=== PATIENT | female | born 1975 | race Caucasian/White ===

== ENCOUNTER 2016-10-08 16:17 | Emergency (ER) | payer MEDICAID ==
[2016-10-08 16:26] VITALS: BP 141/72
[2016-10-08] MEDS ORDERED: Ketorolac 60 MG/2 ML SDV IM ONE (16:44)
[2016-10-08] MEDS ORDERED: Metoclopramide 10 MG/2 ML SDV IM ONE (16:44)
--- NOTE | 2016-10-08 16:50 | EDM.PDOC ---
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, had THR 1989 and then 10 additional surgeries on that hip, last one 2013 developed DJD in her L knee with bone chips, has reached her limit on steroid injections, is d/t to have L TKR by Dr Stewart out of [place] it had not been scheduled yet pt is from [place] and is staying one more day with a friend in [place], driving thru town here when they stopped at ED pt fell yesterday, L knee gave out, she has aggravation of her usual L knee pain not control with Percocet 2 tabs today (usually takes 1 tab QID) as well as tramadol also has a L sided migraine STOVER, last took Maxalt 2w ago, does not have any Maxalt with her no f/c/d - Related Data Allergies/ADRs: Allergies Allergy/AdvReac Type Severity Reaction Status Date / Time azithromycin Allergy Swelling Verified 10/08/16 16:58 fexofenadine [From [facility]lene] Allergy Hives Verified 10/08/16 16:58 latex Allergy Hives Verified 10/08/16 16:58 Home Meds: Home Meds Cetirizine HCl 10 mg PO DAILY 10/08/16 [History] Furosemide [Furosemide] 20 mg PO DAILY 10/08/16 [History] Hydrocodone/Acetaminophen [Hydrocodon-Acetaminoph 7.5-325] 1 tab PO TID PRN [History] Naproxen [Take Home: Naproxen 500 MG, 4 Tab Pack] 500 mg PO BID PRN 10/08/16 [ History] Prazosin [Minpress] 2 mg PO BEDTIME 10/08/16 [History] Pregabalin [Lyrica] 150 mg PO TID 10/08/16 [History] Tolterodine [Detrol LA 24 Hr] 4 mg PO DAILY 10/08/16 [History] Venlafaxine [Effexor XR] 150 mg PO TID 10/08/16 [History] ED ROS GENERAL - Review of Systems Review Of Systems: See Below Constitutional: Reports: no symptoms HEENT: Reports: No symptoms Respiratory: Reports: No Symptoms Cardiovascular: Reports: No symptoms Endocrine: Reports: no symptoms GI/Abdominal: Reports: No symptoms : Reports: no symptoms Musculoskeletal: Reports: joint pain Skin: Reports: no symptoms Neurological: Reports: Headache Psychiatric: Reports: No symptoms Hematologic/Lymphatic: Reports: no symptoms Immunologic: Reports: no symptoms - Physical Exam Exam: See Below Exam Limited By: No limitations General Appearance: alert, WD/WN, mild distress, other (wearing sunglasses, cooperative, nontoxic) Eye Exam: bilateral eye: normal inspection, PERRL Ears: normal external exam, hearing grossly normal Nose: normal inspection, normal mucosa, no blood Throat/Mouth: Normal inspection, Normal lips, Normal gums, Normal oropharynx, Normal voice, No airway compromise, Other (edentulous) Head Exam: atraumatic, normocephalic, other (face NT) Neck: normal inspection, supple, non-tender, full range of motion Respiratory/Chest: no respiratory distress, lungs clear, normal breath sounds, no accessory muscle use, chest non-tender Cardiovascular: regular rate, rhythm, no edema, no gallop, no rub, other (2/6 SREE at LSB, quiet precordium) GI/Abdominal: soft, non tender, no distention Neuro Exam (Abbreviated): alert, oriented, CN II-XII intact, normal cognition, no motor/sensory deficits Back Exam: normal inspection, full range of motion, NT Extremities: other (L knee with mild effusion, no PT, allows 90 degrees flexion reluctantly, some pain with motion, does not allow additional knee testing) Skin Exam: Warm, Dry, Intact, Normal color, No rash Course - Vital Signs Last Recorded V/S: Last Vital Signs Temp 36.1 C 10/08/16 16:25 Pulse 94 10/08/16 16:25 Resp 16 10/08/16 16:25 BP 141/72 H 10/08/16 16:25 Pulse Ox 98 10/08/16 16:25 - Orders/Labs/Meds Meds: Medications Discontinued Medications Generic Name Dose Route Start Last Admin Trade Name Freq PRN Reason Stop Dose Admin Ketorolac Tromethamine 60 mg 10/08/16 16:44 10/08/16 17:08 Toradol IM 10/08/16 16:45 60 mg ONETIME ONE Administration Metoclopramide HCl 10 mg 10/08/16 16:44 10/08/16 17:08 Reglan IM 10/08/16 16:45 10 mg ONETIME ONE Administration Sumatriptan Succinate 6 mg 10/08/16 17:30 10/08/16 17:36 Imitrex SUBCUT 10/08/16 17:31 6 mg ONETIME ONE Administration - Re-Assessments/Exams Free Text/Narrative Re-Assessment/Exam: 10/08/16 17:50 pt better after Toradol and Reglan IM, better with STOVER after additional Imitrex, did not want crutches, has splints at home Departure - Departure Time of Disposition: 17:51 Disposition: Home, Self-Care 01 Condition: good Clinical Impression: Osteoarthritis of left knee, Migraine Additional Instructions: Continue your current meds. Limit walking on left knee. Continue to use left knee splint. Use ice on left knee for 15 minutes 4 times a day for 2 days. See your primary care doctor as well as orthopedic surgeon in 2 days when you return home.
[2016-10-08] MEDS ORDERED: SUMAtriptan 6 MG/0.5 ML SDV SUBCUT ONE (17:30)
== END 2016-10-08 17:55 | disposition home or self-care (01) ==
LOC: FB.ED 16:17
DX: M17.12 Unilateral primary osteoarthritis, left knee (principal); G43.909 Migraine, unspecified, not intractable, without status migrainosus; Z79.899 Other long term (current) drug therapy; Z88.1 Allergy status to other antibiotic agents
CPT/HCPCS: 96372; 99284; J1885; J2765; J3030

== ENCOUNTER 2017-11-02 14:12 | Emergency (ER) | payer MEDICARE, MEDICAID ==
[2017-11-02] MEDS ORDERED: Dihydroergotamine 1 MG/ML SDV SUBCUT ONE (16:31)
[2017-11-02] MEDS ORDERED: Metoclopramide 10 MG/2 ML SDV IM ONE (16:34)
[2017-11-02] MEDS ORDERED: Ketorolac 60 MG/2 ML SDV IM ONE (16:35)
[2017-11-02] MEDS ORDERED: diphenhydrAMINE 50 MG/ML SDV IM ONE (17:15)
[2017-11-02 17:18] VITALS: BP 142/101
--- NOTE | 2017-11-04 12:58 | ER ---
DATE SEEN: 11/02/2017 TIME SEEN: The patient was seen at around 1534 hours. CHIEF COMPLAINT: Migraines. HISTORY OF PRESENT ILLNESS: The patient has migraines daily, and she has had them since she has been 13 years old. She has been treated with multiple medications of which the last used DHE when she was seen at [facility] and placed on DHE. She has, for the last 2 days an aura with green, blue, and sometimes orange colors that last up to a week, but most of the time, if treated will go away. She has been advised that she should probably start propranolol, but has not started yet. She has been on multiple other medicines. She had chills for the last 2 days, but did not have a fever. Her headaches are generalized. It causes marked photophobia and phonophobia. No paresis or weakness. It is 9/10 in intensity presently. Nothing relieves her headache. She tried oral DHE, and it did not help. In [place], used shots. Straining, bending over, pushing with a bowel movement, and sneezing or coughing causes increase in the headache. She denies any change in her hearing or difficulty walking. She has seasonal allergic congestion, and she uses medicine as needed. SOCIAL HISTORY: Significant for divorce. She has 3 children. She has moved from [place] to a house that is next to her friends' here in [place], and they get along well. The patient denies being abused. She is obese. She denies alcohol, but smokes 1 to 2 packs of cigarettes per day for 30+ years. She has poor support system. She is . Her children do not live around here. PAST MEDICAL AND SURGICAL HISTORY: Significant for IBS, intermittent abdominal discomfort, and intermittent incontinence. Status post 27 surgeries, abdominal laparoscopic surgery, LEEP surgery, tonsillectomy, and bone graft to her fibula and avascular necrosis of her hip. They took part of her right fibula and had resultant nerve injury when they grafted this onto the avascular necrosis of her right hip. Hysterectomy, bilateral salpingectomy, and oophorectomy. No history of myocardial infarction or chest pain. She has chronic obstructive lung disease and documented endometriosis (the reason why she had a hysterectomy with bilateral salpingo-oophorectomy), GERD, and severe left knee arthritis which is going to require total knee replacement. REVIEW OF SYSTEMS: The patient has headache as noted above. She is missing her upper teeth and canine incisors with fair dental repair. She denies shortness of breath except with exertion, but has a chronic cough and clear sputum. She denies chest pain, irregular heartbeat, syncope, or presyncope. She denies abdominal pain. She has generalized myalgia and arthralgia, especially right hip discomfort and right lower leg discomfort with loss of sensation in the right lower leg below the fibula bone donor graft site, excision of bone of the fibula. She has marked left knee pain, which is "I have a below knee" and needs total knee replacement. She gets around using a wheelchair. The patient arrived to the emergency room at 1414 hours. I went to see her at about 1420 hours. The nurse was busy with her. Consequently, had a lengthy long medication history which took extensive time for the nurse to free herself up, and I chose not to disrupt her interaction with the patient. Consequently, I saw her at 1534 hours after the nurse finished with her intake. The patient apparently had been seen in the walk-in clinic and came to the emergency room. A friend who brought her here complains that she had been here for 6 hours and I corrected her, said "no, she had not been here for 6 hours." It was close to an hour that the nurse spent with her, and after that, I saw her for less than an hour and a half. PHYSICAL EXAMINATION: GENERAL: A retiring woman. Awake laying on her side with lights off, she mumbles and talks quietly "to her coat with her head covered." She has marked sensitivity to light and has sunglasses in place. HEENT: Even though her eyes were sensitive to light, she had good response of pupils to light and EOMs normal. Hearing is intact. Face/Mouth: Lower incisors and canines present with marked erosion of the crowns of the teeth. No redness noted. The gingiva shows marked pyorrhea. Tongue without abnormality. No glossomegaly. NECK: No cervical adenopathy. No thyromegaly. No masses. No bruits. LUNGS: Moderate rhonchi of the lungs bilaterally. She had moderate rales bilaterally. HEART: S1 and S2; S2 is greater than S1. Sometimes S1 disappears, but the louder S2 when she takes a deep breath, slows down the heart rate, and splits the heart sounds. ABDOMEN: Soft. No guarding. No abdominal discomfort. Bowel sounds are present. No CVA percussion tenderness. EXTREMITIES: Generalized muscle aches in entire body, upper and lower extremities (fibromyalgia). No pedal edema. NEUROLOGIC: Dorsalis pedis is intact. Deep tendon reflexes are hypoactive in upper and lower extremities, but present. Cranial nerves II through XII are intact. Gait appropriate. No pronator drift. Muscle strength appropriate. Romberg negative. No past pointing. No dysmetria. ASSESSMENT: Migraine. "It has not worked well with oral DHE," but she notes subq DHE works well for her. EMERGENCY ROOM COURSE: The patient was given DHE, Toradol 60 mg IM, 10 mg of Reglan IM, and Benadryl 50 mg IM. Within 20 minutes, her headache had gone from 9 down to a 5 or 6 at a 4/10. So, she felt this was pretty good and was smiling and felt much better. DIAGNOSES: 1. Obesity. 2. Migraine. 3. Fibromyalgia. 4. Status post right total hip. 5. Endometriosis history. 6. Irritable bowel syndrome history. 7. Chronic obstructive lung disease with 30 to 73-[id number] smoking. 8. Twenty-seven surgeries with laparoscopic abdominal surgery, LEEP, bone graft to the right hip from donor site of the right fibula with resultant nerve injury and loss of sensation in the right lower extremity. 9. She is waiting to start propranolol. It has not been started for her but has been advised that the medication used for her migraines. Zyprexa has not been helpful for dealing with her headaches. 10.Allergic rhinitis, for which she takes Zyrtec daily. PLAN: The patient was dismissed to follow up with doctor next week, keep her appointment for intake and complete physical examination. She has medicine at home, she feels she can manage. I did not prescribe any narcotics to the patient. /[id number] LILLY/NEIL
== END 2017-11-02 17:23 | disposition home or self-care (01) ==
LOC: FB.ED 14:12
DX: G43.909 Migraine, unspecified, not intractable, without status migrainosus (principal); E66.9 Obesity, unspecified; J44.9 Chronic obstructive pulmonary disease, unspecified; F17.210 Nicotine dependence, cigarettes, uncomplicated; J30.9 Allergic rhinitis, unspecified; M79.7 Fibromyalgia; Z79.899 Other long term (current) drug therapy; Z96.641 Presence of right artificial hip joint; Z87.42 Personal history of other diseases of the female genital tract; Z98.890 Other specified postprocedural states; Z68.41 Body mass index [BMI] 40.0-44.9, adult
CPT/HCPCS: 96372; 99283; J1110; J1200; J1885; J2765